=== PATIENT | female | born 1995 | race American Indian/Alaskan Native ===

== ENCOUNTER 2021-01-11 09:00 | Outpatient (CLI) | payer OTHER | END 2021-01-11 09:15 | disposition home or self-care (01) | LOC: PPH VACUNA 09:00 | PROVIDERS: ATTEND Emergency Medicine Pediatric Emergency Medicine | DX: Z23 Encounter for immunization (principal) ==

== ENCOUNTER 2021-01-15 08:00 | Outpatient (CLI) | payer OTHER | END 2021-01-15 08:30 | disposition home or self-care (01) | LOC: PPH VACUNA 08:00 | PROVIDERS: ATTEND Emergency Medicine Pediatric Emergency Medicine | DX: Z23 Encounter for immunization (principal) ==

== ENCOUNTER 2022-11-18 14:10 | Outpatient (CLI) | payer OTHER | END 2022-11-18 14:15 | disposition home or self-care (01) | LOC: RAD 14:10 | PROVIDERS: ATTEND Internal Medicine | DX: Z01.810 Encounter for preprocedural cardiovascular examination (principal); I10 Essential (primary) hypertension; M54.59 Other low back pain; E03.9 Hypothyroidism, unspecified; E78.9 Disorder of lipoprotein metabolism, unspecified; E55.9 Vitamin D deficiency, unspecified; E11.51 Type 2 diabetes mellitus with diabetic peripheral angiopathy without gangrene; E11.9 Type 2 diabetes mellitus without complications; E66.8 Other obesity; G62.9 Polyneuropathy, unspecified; Z12.11 Encounter for screening for malignant neoplasm of colon ==

== ENCOUNTER 2023-06-16 13:30 | Outpatient (CLI) | payer OTHER | END 2023-06-16 13:40 | disposition home or self-care (01) | LOC: PPH VACUNA 13:30 | PROVIDERS: ATTEND Emergency Medicine Pediatric Emergency Medicine | DX: Z23 Encounter for immunization (principal) ==